=== PATIENT | female | born 1970 | race Caucasian/White ===

== ENCOUNTER 2021-02-12 08:51 | Emergency (ER) | payer MEDICARE, OTHER ==
[~2021-02-12] VITALS: Ht 170.2 cm; Wt 111.1 kg
[2021-02-12 09:33] LABS: HEMOGLOBIN 11.8 gm/dl (12.3-15.3); RED BLOOD COUNT 4.36 M/UL (4.00-5.10); WHITE BLOOD COUNT 10.6 K/UL (4.5-11.0)
[2021-02-12] MEDS ORDERED: PHENERGAN 25 MG25 M1 PO (10:17)
== END 2021-02-12 10:37 | disposition home or self-care (01) ==
LOC: ER1 08:51
PROVIDERS: Physician Assistant
DX: A04.8 Other specified bacterial intestinal infections (principal); E11.9 Type 2 diabetes mellitus without complications; I10 Essential (primary) hypertension; Z79.899 Other long term (current) drug therapy
CPT/HCPCS: 80053; 83690; 85025; 96374; 99284; J2405